=== PATIENT | male | born 1970 | race Caucasian/White ===

== ENCOUNTER 2017-03-07 09:40 | Emergency (ER) | payer SELFPAY ==
[~2017-03-07] VITALS: Ht 180.3 cm; Wt 77.1 kg
[2017-03-07 10:08] VITALS: BP 142/94
== END 2017-03-07 10:15 | disposition left against medical advice (07) ==
LOC: ER 09:40
DX: K62.89 Other specified diseases of anus and rectum (principal); Z53.21 Procedure and treatment not carried out due to patient leaving prior to being seen by health care provider

== ENCOUNTER 2017-06-22 14:07 | Emergency (ER) | payer MEDICAID ==
[~2017-06-22] VITALS: Ht 180.3 cm; Wt 88.5 kg
[2017-06-22 14:32] VITALS: BP 159/109
[2017-06-22] MEDS ORDERED: KETOROLAC TROMETH 60MG/2ML VIAL IM ONE (14:45)
[2017-06-22] MEDS ORDERED: METHOCARBAMOL 500 MG TAB PO ONE (14:45)
== END 2017-06-22 16:00 | disposition home or self-care (01) ==
LOC: ER 14:07
DX: M47.896 Other spondylosis, lumbar region (principal); G89.29 Other chronic pain
CPT/HCPCS: 72110; 96372; 99284; J1885

== ENCOUNTER 2017-07-28 05:35 | Emergency (ER) | payer MEDICAID ==
[~2017-07-28] VITALS: Ht 180.3 cm; Wt 90.7 kg
[2017-07-28] MEDS ORDERED: KETOROLAC TROMETH 60MG/2ML VIAL IM ONE (07:30)
[2017-07-28 07:58] VITALS: BP 119/76
== END 2017-07-28 09:03 | disposition home or self-care (01) ==
LOC: ER 05:36
DX: S80.01XA Contusion of right knee, initial encounter (principal); S80.211A Abrasion, right knee, initial encounter; G89.29 Other chronic pain; M54.9 Dorsalgia, unspecified; V18.4XXA Pedal cycle driver injured in noncollision transport accident in traffic accident, initial encounter; Y93.89 Activity, other specified; Y99.8 Other external cause status; Y92.89 Other specified places as the place of occurrence of the external cause
CPT/HCPCS: 73562; 96372; 99284; J1885

== ENCOUNTER 2017-08-13 11:55 | Emergency (ER) | payer MEDICAID ==
[~2017-08-13] VITALS: Ht 180.3 cm; Wt 88.5 kg
[2017-08-13 12:57] VITALS: BP 119/70
== END 2017-08-13 13:02 | disposition home or self-care (01) ==
LOC: ER 11:55
DX: G89.29 Other chronic pain (principal); M54.5 Low back pain; Z76.0 Encounter for issue of repeat prescription

== ENCOUNTER 2019-02-27 11:06 | Emergency (ER) | payer MEDICAID ==
[~2019-02-27] VITALS: Ht 180.3 cm; Wt 95.3 kg
[2019-02-27 11:13] VITALS: BP 108/76
== END 2019-02-27 13:00 | disposition left against medical advice (07) ==
LOC: ER 11:06
DX: M54.9 Dorsalgia, unspecified (principal); Z53.21 Procedure and treatment not carried out due to patient leaving prior to being seen by health care provider

== ENCOUNTER 2019-07-20 10:30 | Emergency (ER) | payer MEDICAID ==
[~2019-07-20] VITALS: Ht 182.9 cm; Wt 95.3 kg
[2019-07-20 10:55] VITALS: BP 139/95
[2019-07-20] MEDS ORDERED: HYDROcodone-ACET 7.5/325MG TAB PO ONE (11:15)
== END 2019-07-20 12:37 | disposition home or self-care (01) ==
LOC: ER 10:30
DX: S02.32XA Fracture of orbital floor, left side, initial encounter for closed fracture (principal); S02.832A Fracture of medial orbital wall, left side, initial encounter for closed fracture; Y04.2XXA Assault by strike against or bumped into by another person, initial encounter; Y93.89 Activity, other specified; Y92.89 Other specified places as the place of occurrence of the external cause; Y99.8 Other external cause status
CPT/HCPCS: 70450; 70486

== ENCOUNTER → 2021-04-26 | Emergency (ER) | payer MEDICAID ==
[~2021-04-26] VITALS: Ht 185.4 cm; Wt 79.4 kg
[2021-04-26 15:59] VITALS: BP 134/86
== END | disposition left against medical advice (07) ==
LOC: ER 15:52
DX: R51.9 Headache, unspecified (principal); M54.2 Cervicalgia; M25.562 Pain in left knee; M25.561 Pain in right knee; M25.572 Pain in left ankle and joints of left foot; M25.571 Pain in right ankle and joints of right foot; Z53.21 Procedure and treatment not carried out due to patient leaving prior to being seen by health care provider; V89.2XXA Person injured in unspecified motor-vehicle accident, traffic, initial encounter; Y93.89 Activity, other specified; Y92.89 Other specified places as the place of occurrence of the external cause; Y99.8 Other external cause status

== ENCOUNTER 2022-03-25 19:43 | Emergency (ER) | payer MEDICAID ==
[~2022-03-25] VITALS: Ht 180.3 cm; Wt 86.2 kg
[2022-03-25 20:01] VITALS: BP 142/80
== END 2022-03-26 00:42 | disposition left against medical advice (07) ==
LOC: ER 19:43
DX: S00.01XA Abrasion of scalp, initial encounter (principal); M54.9 Dorsalgia, unspecified; Z53.21 Procedure and treatment not carried out due to patient leaving prior to being seen by health care provider; W18.09XA Striking against other object with subsequent fall, initial encounter; Y93.89 Activity, other specified; Y92.89 Other specified places as the place of occurrence of the external cause; Y99.8 Other external cause status